=== PATIENT | female | born 1960 | race Caucasian/White ===

== ENCOUNTER → 2016-12-25 | Outpatient (CLI) | payer BC | LOC: MC.RAD 16:25 | DX: Z12.31 Encounter for screening mammogram for malignant neoplasm of breast (principal) ==

== ENCOUNTER → 2018-02-11 | Outpatient (CLI) | payer BC | LOC: MC.RAD 09:04 | DX: Z12.31 Encounter for screening mammogram for malignant neoplasm of breast (principal) ==

== ENCOUNTER → 2019-03-11 | Outpatient (CLI) | payer BC | LOC: MC.RAD 12:37 | DX: Z12.31 Encounter for screening mammogram for malignant neoplasm of breast (principal) ==

== ENCOUNTER 2020-11-17 14:36 | Outpatient (RCR) | payer OTHER | END 2021-02-15 | disposition home or self-care (01) | LOC: WSOH | DX: S51.831A Puncture wound without foreign body of right forearm, initial encounter (principal); W55.01XA Bitten by cat, initial encounter; Z96.641 Presence of right artificial hip joint ==

== ENCOUNTER 2021-12-21 16:49 | Emergency (ER) | payer BC ==
[~2021-12-21] VITALS: Ht 167.6 cm; Wt 83.6 kg
[2021-12-21 16:50] VITALS: TEMP 98.8
[2021-12-21] MEDS ORDERED: ULTRAM 50MG TAB50 MG PO (16:54)
[2021-12-21] MEDS ORDERED: CEPHALEXIN500 M1 PO (16:54)
[2021-12-21] MEDS ORDERED: RELPAX20 MG PO (16:55)
[2021-12-21] MEDS ORDERED: LEXAPRO 10MG10 MG PO (16:55)
[2021-12-21] MEDS ORDERED: PROTONIX 40MG T40 MG PO (16:55)
[2021-12-21 18:03] LABS: BASO # 0.2 K/mm3 (0.0-0.2); BASO % 1.3 % (0.0-2.0); EOS # 0.1 K/mm3 (0.0-0.7); EOS % 0.6 % (0.0-4.0); GRAN # 9.8 K/mm3 (1.4-6.5); GRAN % 82.3 % (42.2-75.2); HEMATOCRIT 40.3 % (37.0-47.0); HEMOGLOBIN 13.6 g/dl (12.5-16.0); LYMPH # 1.2 K/mm3 (1.2-3.4); LYMPH % 10.4 % (20.0-51.0); MEAN CELL VOLUME 88 fl (80.0-100.0); MEAN CORPUSCULAR HEMOGLOBIN 30 pg (27-31); MEAN CORPUSCULAR HGB CONC 34 g/dl (33.0-37.0); MONO # 0.6 K/mm3 (0.1-0.6); MONO % 4.9 % (1.7-9.3); PLATELET COUNT 381 K/mm3 (130-400); RED BLOOD COUNT 4.56 M/mm3 (4.10-5.30); REDCELL DISTRIBUTION WIDTH-CV 12.5 % (11.5-14.5)
[2021-12-21 18:21] LABS: ALBUMIN 3.4 gm/dL (3.4-4.8); BILIRUBIN,TOTAL 0.4 mg/dL (0.2-1.2); CALCIUM 8.6 mg/dL (8.4-10.2); CREATININE, serum 0.83 mg/dL (0.57-1.11); POTASSIUM 3.4 mmol/L (3.5-4.5); TOTAL PROTEIN 6.2 gm/dL (6.2-8.1)
[2021-12-21 18:26] LABS: TROPONIN-I 0.013 ng/mL (0.00-0.033)
[2021-12-21 20:01] LABS: COLLECTION METHOD CLEAN CATCH
[2021-12-21 20:10] LABS: MUCOUS Present (NOT PRESENT); SQUAMOUS EPITHELIAL 0-2 /hpf (0-10); URINE APPEARANCE Clear (CLEAR/HAZY); URINE BACTERIA None Seen /hpf (NONE SEEN); URINE BLOOD TRACE-INTACT (NEGATIVE); URINE COLOR Yellow (YELLOW); URINE GLUCOSE Negative (NEGATIVE); URINE KETONE Negative (NEGATIVE); URINE NITRATE Negative (NEGATIVE); URINE PROTEIN(semi-quant) Negative (NEGATIVE); URINE UROBILINOGEN 0.2 E.U/dL (0.2-1.0)
[2021-12-21] MEDS ORDERED: ZOFRAN ODT4 MG PO (20:26)
[2021-12-21 20:58] VITALS: BP 138/87; PULSE 78
== END 2021-12-21 21:00 | disposition home or self-care (01) ==
LOC: COL.ER 16:49
PROVIDERS: Emergency Medicine
DX: E87.6 Hypokalemia (principal); R07.2 Precordial pain; D72.829 Elevated white blood cell count, unspecified; R11.2 Nausea with vomiting, unspecified; R79.1 Abnormal coagulation profile; Z20.822 Contact with and (suspected) exposure to COVID-19
CPT/HCPCS: J1885; J2270; J2765; J7030; Q9967

== ENCOUNTER → 2022-05-25 | Outpatient (CLI) | payer OTHER ==
[~2022-05-25] MED LIST: CEPHALEXIN500 M1 PO; LEXAPRO 10MG10 MG PO; PROTONIX 40MG T40 MG PO; RELPAX20 MG PO; ULTRAM 50MG TAB50 MG PO; ZOFRAN ODT4 MG PO
== END ==
LOC: MC.RAD 13:19
DX: Z12.31 Encounter for screening mammogram for malignant neoplasm of breast (principal)

== ENCOUNTER → 2022-06-06 | Outpatient (CLI) | payer OTHER | LOC: COL.RAD 13:17 | DX: G31.1 Senile degeneration of brain, not elsewhere classified (principal); I63.9 Cerebral infarction, unspecified | CPT/HCPCS: Q9967 ==

== ENCOUNTER 2022-07-24 13:36 | Outpatient (RCR) | payer BC | END 2022-07-24 13:40 | LOC: MKS.ESL.PT 13:36 | DX: I63.9 Cerebral infarction, unspecified (principal) ==

== ENCOUNTER → 2023-11-05 | Outpatient (CLI) | payer OTHER | LOC: MC.RAD 10:48 | DX: Z12.31 Encounter for screening mammogram for malignant neoplasm of breast (principal) ==